=== PATIENT | female | born 1945 | race African-American/Black ===

== ENCOUNTER 2019-12-21 17:12 | Emergency (ER) | payer OTHER ==
[~2019-12-21] VITALS: Ht 157.5 cm; Wt 52.2 kg
[2019-12-21 18:17] LABS: HEMATOCRIT 30.9 % (37.0-47.0); HEMOGLOBIN 10.5 gm/dL (12.0-15.0)
[2019-12-21 19:38] VITALS: BP 183/88
== END 2019-12-21 18:34 | disposition home or self-care (01) ==
LOC: ER 17:12
PROVIDERS: Emergency Medicine
DX: T82.838A Hemorrhage due to vascular prosthetic devices, implants and grafts, initial encounter (principal); I13.0 Hypertensive heart and chronic kidney disease with heart failure and stage 1 through stage 4 chronic kidney disease, or unspecified chronic kidney disease; E11.22 Type 2 diabetes mellitus with diabetic chronic kidney disease; N18.9 Chronic kidney disease, unspecified; I50.9 Heart failure, unspecified; Z86.73 Personal history of transient ischemic attack (TIA), and cerebral infarction without residual deficits; Y92.89 Other specified places as the place of occurrence of the external cause

== ENCOUNTER 2020-03-03 02:26 | Inpatient (IN) | payer OTHER ==
[~2020-03-03] VITALS: Ht 167.6 cm; Wt 54.6 kg
--- NOTE | ~2020-03-03 | HC ---
[facility] [place] [address] CONSULTATION Name: CALE OVIEDO Room #: 362-P ADM IN M.R.#: [id number] Admission: 03/03/20 Attend Phys: Narendra Barbosa Discharge: Date of : 49 Report #: [id number] THIS REPORT FOR: cc: Arnulfo Humphries MD, Shyam MD Al-Absi,Mitzi Narvaez MD ~ CC: Narendra Humphries DATE OF SERVICE: 03/03/2020 REASON FOR CONSULTATION: End-stage renal disease. REASON FOR PRESENTATION: Mental status. HISTORY OF PRESENT ILLNESS: This is obtained from the medical chart and the patient is not able to provide me with any details. Apparently, the patient was in her nursing facility and was sent to [facility] with acute mental status changes. Details are not available, but the patient was sent back to her nursing facility. She was given tramadol and after that the patient's mental status continued to worsen. Nurses reported some foamy secretions coming out from her mouth for which they decided to transfer her to our facility. She is known to have end-stage renal disease and maintained on hemodialysis. There is a history of stroke with some residual deficit, but details are not available. She received full dialysis yesterday. On presentation to the Emergency Room, her CBC was within normal range. She had mild hyponatremia. By her numbers imply well dialysis yesterday. There is no chest x-ray. She is being ruled out for COVID-19. I was consulted to manage her end-stage renal disease. MEDICATIONS: 1. From the nursing facility hydralazine. 2. Carvedilol. 3. Lisinopril. 4. Gabapentin. 5. Amlodipine. FAMILY HISTORY: Unobtainable given the patient's current mental status. SOCIAL HISTORY: Resides in a nursing facility. No further details. REVIEW OF SYSTEMS: Unobtainable given the patient's current mental status. PAST MEDICAL HISTORY: Obtained from the medical chart. 1. End-stage renal disease. 2. Diabetes mellitus. 3. Hypertension. [facility] [address] [place] [address] CONSULTATION Name: CALE OVIEDO Room #: 362-P [facility] IN .R.#: [id number] Admission: 03/03/20 Attend Phys: Narendra Barbosa Discharge: Date of : 49 Report #: [id number] 4. Stroke with residual deficit. PHYSICAL EXAMINATION: VITAL SIGNS: Blood pressure is 208/117, temperature is 35.7. HEAD AND NECK: No jugular venous distention. CHEST: Decreased air entry bilaterally. CARDIOVASCULAR: No rub. ABDOMEN: Soft. LOWER EXTREMITIES: No edema. LABORATORY VALUES: Sodium 129, potassium 4.1, BUN 22, creatinine 4.1. ASSESSMENT AND PLAN: 1. End-stage renal disease. 2. Encephalopathy with acute mental status changes. 3. Diabetes mellitus. 4. Hypertension. 5. The patient is well dialyzed from the renal perspective, we will continue with the dialysis every Thursday, Thursday and Thursday. 6. Workup for acute mental status changes. 7. Resume blood pressure medication. 8. Resume blood sugar medications. 9. We will continue to follow. By: [id number] Mitzi Yin MD /nt
--- NOTE | ~2020-03-03 | EMS ---
[address] [address] EMS Patient Care Report Name: CALE OVIEDO Room #: REG Bobo#: [id number] Admission: 03/03/20 Attend Phys: Discharge: Date of : 49 Report #: [id number] THIS REPORT FOR: //name// Report Transmitted: 03/03/2020 03:12 EMS Care Summary [place], [place]/[facility] Incident [id number] @ 03/03/2020 01:49 Incident Location [id number] [place] [address] Patient CALE OVIEDO Female, 74 Years 1945 Patient Address [address] [place], [place] [id number] Patient History Diabetes,Hypertension (HTN),Stroke/CVA,Dialysis,Cardiomyopathy, Patient Allergies No known allergies, Patient Medications Polyethlene Glycol, Lisinopril, Gabapentin, Alprazolam, Clonidine, Insulin, Erythromycin, Spironolactone, Xanax, Aspirin, Carvedilol, Amlodipine, Chief Complaint ALTERED LOC Disposition Transported No Lights/[place] Dispatch Reason Chest Pain (Non-Traumatic) Transported To [facility] Narrative SCENE: ON ARRIVAL EMS MET BY STAFF. REPORTING PT RETURNED FROM THE ER AT 1999, VIA EMS, AND WAS RESTLESS AND C/O HIP AND OTHER PAIN. STAFF REPORTS PT WAS AT [address] [address] EMS Patient Care Report Name: CALE OVIEDO Room #: REG [facility].Essie.#: [id number] Admission: 03/03/20 Attend Phys: Discharge: Date of : 49 Report #: [id number] THE ER DE TO SOME ALTERED LOC FOLLOWING DIALYSIS, BUT WAS NOT GIVEN A DIAGNOSIS. PT IS LYING IN BED IN ROOM AT ADDRESS PROVIDED. PT HAS A NC AT 3LPM PRI RTO EMS ARRIVAL, WHICH STAFF STATES IS NORMAL FOR PT. PT IS MAINTANING HER OWN AIRWAY WITH RESPIRATIONS OF APPROPRIATE RATE AND DEPTH. PT HAS A STRONG RADIAL PULSE. STAFF STATES PT WAS GIVEN HER PRESCRIBED TRAMADOL.PT SLID TO EMS STRETCHER. STAFF REQUESTS TRASPORT TO [facility]. AMBULANCE:IV ATTEMPTS NOT SUCCESFUL. PT RIGHT ARM HAS MILD EDEMA. EMS ADMINISTERED 1MG IN NARCAN WITH NO EFFECT. UPON ARRIVAL TO ED, PT WAS ALERT TO VOICE. NO OTHER CHANGES IN PT STATUS EN ROUTE. Initial Vitals @02:19P: 105,R: 20,BP: 180/120,Pain: 0/10,GCS: 10,Revised Trauma: 11, @02:09P: 105,R: 16,BP: 175/95,GCS: 9,SpO2: 98,Revised Trauma: 11, @02:06P: 105,R: 20,BP: 187/114,GCS: 9,SpO2: 99,Revised Trauma: 11, @02:03P: 105,R: 18,BP: 186/121,GCS: 9,Glucose: 108,Revised Trauma: 11, Assessments @02:01MENTAL:Other,SKIN:HEENT:LUNG SOUNDS:ABDOMEN:PELVIS//GI:EXTREMITIES:Right Arm: Edema,Left Arm: No Abnormalities,PULSE:NEURO:No Abnormalities,@02:18MENTAL:Other,SKIN:HEENT:LUNG SOUNDS:ABDOMEN:PELVIS//GI:EXTREMITIES:PULSE:NEURO: Impression Altered Mental Status Procedures @01:59ALS AssessmentResponse: UnchangedSucceeded@PTAOxygen FlowRate: 3 Device: Nasal Cannula (NC) Response: UnchangedSucceeded@02:033-Lead ECGResponse: UnchangedSucceeded@02:01StretcherResponse: Unchanged@02:09Saline Lock 0cc (18 ga) Site: Forearm-RightResponse: UnchangedFailed@02:05Narcan - 1 Milligrams (mg) - IntranasalResponse: Unchanged Timeline THEATRICAL SCENIC DESIGNER,Oxygen FlowRate: 3 Device: Nasal Cannula (NC) Response: UnchangedSucceeded, 01:48,Call Received 01:48,Dispatch Notified 01:49,Dispatched 01:50,En Route 01:55,On Scene 01:59,At Patient 01:59,ALS Assessment,Response: UnchangedSucceeded, 02:01,Stretcher,Response: Unchanged 02:03,BP: 186/121 M,PULSE: 105,RR: 18 R,SPO2: Ox,ETCO2: ,B,PAIN: ,GCS: 9, 02:03,3-Lead ECG,Response: UnchangedSucceeded, [facility] [address] [place] [address] EMS Patient Care Report Name: CALE OVIEDO Room #: REG KENRICK Broussard#: [id number] Admission: 03/03/20 Attend Phys: Discharge: Date of : 49 Report #: [id number] 02:05,Narcan - 1 Milligrams (mg) - Intranasal,Response: Unchanged 02:06,BP: 187/114 M,PULSE: 105,RR: 20 R,SPO2: 99 Ox,ETCO2: ,BG: ,PAIN: ,GCS: 9, 02:07,Depart Scene 02:09,Saline Lock 0cc 18 ga Site: Forearm-Right,Response: UnchangedFailed, 02:09,BP: 175/95 M,PULSE: 105,RR: 16 R,SPO2: 98 Ox,ETCO2: ,BG: ,PAIN: ,GCS: 9, 02:19,BP: 180/120 M,PULSE: 105,RR: 20 R,SPO2: Ox,ETCO2: ,BG: ,PAIN: 0,GCS: 10, 02:22,At Destination 02:44,Call Closed Disclaimer v1.1 Copyright 2020 [employer] This EMS Care Summary contains data elements from the applicable legal record (which may be displayed differently). It is designed to provide pertinent information for the following purposes: continuity of care, clinical quality, and state data reporting. The complete legal record is available to ED staff and administrators of the receiving hospital in [employer] Patient Tracker. All data is provided "as is."
[2020-03-03 03:28] LABS: CALCIUM 9.2 mg/dL (8.5-10.1); CREATININE 4.1 mg/dL (0.6-1.0); POTASSIUM 4.1 mmol/L (3.5-5.1)
[2020-03-03 03:29] LABS: MCV 86.3 fL (80.0-100.0)
[2020-03-03 03:31] LABS: HEMATOCRIT 36.4 % (37.0-47.0); HEMOGLOBIN 12.3 gm/dL (12.0-15.0); MCH 29.3 pg (26.0-34.0); PLATELET COUNT 122 thou/uL (150-400); RBC 4.21 mil/uL (4.20-5.00); RDW 19.9 % (10.5-14.5); WBC 5.8 thou/uL (4.0-11.0)
[2020-03-03 03:34] LABS: ALBUMIN 3.6 g/dL (3.4-5.0); DIRECT BILIRUBIN 0.3 mg/dL (<0.1-0.2); TOTAL BILIRUBIN 0.7 mg/dL (0.2-1.0); TOTAL PROTEIN 6.7 g/dL (6.4-8.2)
[2020-03-03 04:30] LABS: ANISOCYTOSIS 2+; LARGE PLATELETS FEW
[2020-03-03] MEDS ORDERED: ONDANSETRON HCL4 M2 PO (05:22)
[2020-03-03] MEDS ORDERED: SEVELAMER HCL800 MG PO (05:23)
[2020-03-03] MEDS ORDERED: GABAPENTIN 100100 MG PO (05:23)
[2020-03-03] MEDS ORDERED: TRAMADOL 50 MG50 MG PO (05:23)
[2020-03-03] MEDS ORDERED: LISINOPRIL20 MG PO (05:23)
[2020-03-03] MEDS ORDERED: TYLENOL325 M1 PO (05:37)
[2020-03-03] MEDS ORDERED: ASA81BEC PO (05:38)
[2020-03-03] MEDS ORDERED: NORVASC 2.5 MG2.5 M1 PO (05:38)
[2020-03-03] MEDS ORDERED: BRIMONIDINE TAR15 M1 (05:39)
[2020-03-03] MEDS ORDERED: SUPER THERAVIT1 EACH PO (05:40)
[2020-03-03] MEDS ORDERED: CARVEDILOL25 MG PO (05:40)
[2020-03-03] MEDS ORDERED: DULCOLAX STOOL100 M1 PO (05:40)
[2020-03-03] MEDS ORDERED: MILK OF MA400 MG/5 M PO (05:41)
[2020-03-03] MEDS ORDERED: MELATONIN5 MG SUBLING (05:41)
[2020-03-03] MEDS ORDERED: ALPRAZOLAM 0.50.5 M1 PO (05:42)
[2020-03-03] MEDS ORDERED: DULCOLAX10 MG RECTAL (05:57)
[2020-03-03] MEDS ORDERED: HYDRALAZINE 5050 MG PO (05:59)
[2020-03-03] MEDS ORDERED: MIRALAX119 GM PO (05:59)
[2020-03-03] MEDS ORDERED: ERYTHROMYCIN E3.5 G2 OPHTHALMIC (05:59)
[2020-03-03] MEDS ORDERED: LATANOPROST 0.2.5 ML OPHTHALMIC (06:00)
[2020-03-03] MEDS ORDERED: LEVEMIR FL100 UNIT/2 SUBQ (06:00)
[2020-03-03] MEDS ORDERED: LIDODERM1 EACH TOP (06:00)
[2020-03-03 08:17] VITALS: BP 160/100
[2020-03-03 12:19] VITALS: BP 150/100
[2020-03-03 15:51] VITALS: BP 180/110
[2020-03-03 16:50] VITALS: BP 155/95
[2020-03-03 20:19] LABS: BE(vivo) -2.3 mmol/L (-2 to +3); HCO3 20.8 mmol/L (22.0-26.0); PCO2 30.9 mmHg (35.0-45.0); pH 7.445 (7.360-7.450); sO2 90.4 % (92.0-98.0)
[2020-03-03 20:22] LABS: PO2 55.2 mmHg (80.0-100.0)
[2020-03-04] VITALS: BP 190/106
[2020-03-04 07:14] VITALS: BP 172/90
[2020-03-04 14:33] LABS: CALCIUM 8.8 mg/dL (8.5-10.1); MAGNESIUM 1.9 mg/dL (1.8-2.4); POTASSIUM 4.1 mmol/L (3.5-5.1)
[2020-03-04 14:38] LABS: HEMATOCRIT 35.9 % (37.0-47.0); HEMOGLOBIN 11.8 gm/dL (12.0-15.0); MCH 28.6 pg (26.0-34.0); MCV 86.7 fL (80.0-100.0); RBC 4.13 mil/uL (4.20-5.00); RDW 20.3 % (10.5-14.5); WBC 4.5 thou/uL (4.0-11.0)
[2020-03-04 18:12] VITALS: BP 179/87
[2020-03-04 19:30] VITALS: BP 178/82
[2020-03-04 22:27] VITALS: BP 160/64
[2020-03-05 07:25] VITALS: BP 132/40
[2020-03-05] MEDS ORDERED: VOLTAREN GEL 1100 G1 TOP (11:28)
[2020-03-05] MEDS ORDERED: HUMALOG100 UNIT/1 SUBQ (11:28)
[2020-03-05] MEDS ORDERED: KEPPRA XR500 MG PO (11:28)
[2020-03-05] MEDS ORDERED: CLOPIDOGREL75 MG PO (11:28)
[2020-03-05 15:28] VITALS: BP 151/69
== END 2020-03-05 17:58 | DRG 70 ==
LOC: ER 02:26 → 4W 04:46 → EROBS 04:46 → 3W 05:34 → 4W 03-04 21:44
PROVIDERS: Emergency Medicine; Nurse Practitioner Family; ADMIT Hospitalist; ATTEND Hospitalist
PROC: 5A1D70Z Performance of Urinary Filtration, Intermittent, Less than 6 Hours Per Day (ICD-10-PCS; principal; 2020-03-05)
DX: G93.41 Metabolic encephalopathy (principal); N18.6 End stage renal disease; I16.1 Hypertensive emergency; E87.1 Hypo-osmolality and hyponatremia; I13.2 Hypertensive heart and chronic kidney disease with heart failure and with stage 5 chronic kidney disease, or end stage renal disease; R56.9 Unspecified convulsions; E11.22 Type 2 diabetes mellitus with diabetic chronic kidney disease; E78.5 Hyperlipidemia, unspecified; I50.9 Heart failure, unspecified; E11.42 Type 2 diabetes mellitus with diabetic polyneuropathy; R29.6 Repeated falls; H35.30 Unspecified macular degeneration; F41.9 Anxiety disorder, unspecified; F32.9 Major depressive disorder, single episode, unspecified; G70.00 Myasthenia gravis without (acute) exacerbation; E87.8 Other disorders of electrolyte and fluid balance, not elsewhere classified; Z20.828 Contact with and (suspected) exposure to other viral communicable diseases; D69.6 Thrombocytopenia, unspecified; Z86.73 Personal history of transient ischemic attack (TIA), and cerebral infarction without residual deficits; Z79.82 Long term (current) use of aspirin; Z79.899 Other long term (current) drug therapy; Z79.4 Long term (current) use of insulin; Z99.2 Dependence on renal dialysis
CPT/HCPCS: 10045; 10879; 32100